=== PATIENT | female | born 1950 | race African-American/Black ===

== ENCOUNTER → 2017-04-01 | Outpatient (CLI) | payer MEDICARE, OTHER ==
[~2017-04-01] MED LIST: ALBUTEROL MININEB NEB; ASPIRIN PO; FLEXERIL10 M1 PO; GLUCOTROL XL PO; IBUPROFEN IN40 MG/ML PO; IBUPROFEN PO; LIPITOR PO; METFORMIN PO; NAPROSYN500 MG PO; ZESTORETIC 20/21 TAB PO
--- NOTE | ~2017-04-01 | CR63 ---
[facility] A Service of [facility] & [facility] RADIOLOGY TEXT RESULTS PATIENT: LARRY ARCE LOCATION: [facility] : 50 UNIT #: [id number] AGE: [address]: SHEEBA JOSEPH APRN SEX: F ORDER DR: [id number] [facility] [address] [place], [place] [address] [id number] O MR#: [id number] Acc #: [id number] NAME: LARRY ARCE : 1950 SEX: F STUDY DATE/TIME: 04/01/2017 15:58 UNIT: [facility] ROOM: STUDY DESCRIPTION: CR Chest 2 View Attending Physician: Sheeba Joseph Aprn Ordering Physician: Sheeba Joseph Aprn Primary Care Physician: Zain Aggarwal M.D. MEDICAL IMAGING REPORT This report is preliminary unless electronic signature is present EXAM Two views chest 04/01/2017 HISTORY Chronic 6 months congestion at times. Preop clearance left first week of April. "mild" FINDINGS PA and lateral radiographs of the chest are presented. Comparison 12/27/2010. No acute bony abnormality. Degenerative changes in the spine. The heart is [id number] limits of normal in size. Stable appearance. Mediastinal contours within normal limits. Lungs are well-inflated without evidence of acute infectious or inflammatory disease, pleural effusion, or pneumothorax. No suspicious nodule. Dictated by... Keven Dasilva M.D. THIS IS AN ELECTRONICALLY VERIFIED REPORT Keven Dasilva M.D. at 04/03/2017 2:07 PM Kam TD: 04/02/2017 13:49 JOB #: [id number] MEDICAL IMAGING REPORT Page 1 of 1 COPY
== END | disposition home or self-care (01) ==
LOC: CRAD 15:44
DX: Z01.818 Encounter for other preprocedural examination (principal)
CPT/HCPCS: 71020